=== PATIENT | female | born 1995 | race Caucasian/White ===

== ENCOUNTER 2017-12-27 03:53 | Emergency (ER) | payer MEDICAID, SELFPAY ==
[2017-12-27 04:16] VITALS: BP 112/63; PULSE 72; RESP 12; TEMP 36.9; O2SAT 95; BMI 24.3
--- NOTE | 2017-12-27 05:21 | HMH.EDHA ---
ED Disposition Clinical Impression: Migraine headache Qualifiers: Migraine type: unspecified Status migrainosus presence: without status migrainosus Intractability: not intractable Qualified Code(s): G43.909 - Migraine, unspecified, not intractable, without status migrainosus Disposition: Home, Self-Care Condition on Discharge: Good Instructions: DI for Migraine Additional Instructions: Please follow-up with your family physician as needed. Referrals: Malaika Man [Primary Care Provider] - Time of Disposition: : - Critical Care Critical Care Time: No Attestation: On 12/27/17, the high probability of a clinically significant, sudden or life threatening deterioration of the following system(s) required my full and direct attention, intervention and personal management. The time I documented below is in addition to time spent performing reported procedures but includes the following listed in this critical care notation. Medical Decision Making - Medical Records Medical records reviewed: Yes: I reviewed the patient's medical records. Vital Signs: 12/27/17 04:16 Temperature 98.5 F Temperature Source Oral Pulse Rate [Left Radial] 72 Respiratory Rate 12 Blood Pressure [Right Arm] 112/63 Blood Pressure Mean [Right Arm] 79 Blood Pressure Position [Right Arm] Right Lateral 02 Sat by Pulse Oximetry 95 Oxygen Delivery Method Room Air Orders (Tests/Meds): ED MEDICATIONS Discontinued Medications Generic Name Dose Route Start Last Admin Trade Name Freq PRN Reason Stop Dose Admin Diphenhydramine HCl 50 mg 12/27/17 04:09 12/27/17 04:28 Benadryl 50mg/1ml Vial IM 12/27/17 04:10 50 mg ONCE ONE Administration Ketorolac Tromethamine 60 mg 12/27/17 04:09 12/27/17 04:33 Toradol 60mg/2ml Vial IM 12/27/17 04:10 60 mg ONCE ONE Administration Metoclopramide HCl 10 mg 12/27/17 04:09 12/27/17 04:30 Reglan 10mg/2ml Vial IM 12/27/17 04:10 10 mg ONCE ONE Administration - Morgan Inquiry Pt receiving controlled substance: No - Reevaluation(s) Time: 05:26 Reevaluation #1: Upon reevaluation patient appears medically stable, no acute distress, with no residual headache. This patient to follow-up with PCP for additional evaluation and workup regarding her migraine headaches. She has a 4-month-old child at home, but she is not breast-feeding. Headache HPI - General Chief Complaint: Headache Stated Complaint: migraine Time Seen by Provider: 12/27/17 04:10 Mode of Arrival: Ambulatory Source of Information: Patient Limitations: No Limitations Description of Symptoms (Recalled from ER Triage Doc. by RN): migraine - History of Present Illness MD Complaint: migraine Onset (ago): day(s) (1) Onset description: gradual Location: right, left, frontal, temporal Severity: moderate Severity scale (1-10): 8 Quality: throbbing Relieving factors: nothing Exacerbating factors: movement of head/neck, light, noise, rest Context: occurred at rest Associated symptoms: none Treatments prior to arrival: ibuprofen - Related Data Home Medications Medication Instructions Recorded Confirmed No Known Home Medications [No 12/27/17 12/27/17 Known Home Medications] Allergies Allergy/AdvReac Type Severity Reaction Status Date / Time zolpidem [From AMBIEN] Allergy Unknown HALLUCINATI Verified 12/27/17 04:23 [facility] History I have reviewed the patient's past medical history: Yes Medical History: Denies:: Cancer, Diabetes Mellitus Type 1, Diabetes Mellitus Type 2, MRSA Comment: Hx of migraines Amputation: No Fractures: No - *Social History Smoking Status: Current every day smoker Tobacco Type: cigarettes Alcohol Intake: never - Psychiatric History Expresses thoughts of harming self/others: None Suicide Plan Description: No Plan ROS Obtained: Yes All systems reviewed & no additional complaints - Neurologic Neurologic: Reports as per HPI, Reports headache
[2017-12-27 05:28] VITALS: BP 136/72; PULSE 84; RESP 16; TEMP 37; O2SAT 99
== END 2017-12-27 05:31 | disposition home or self-care (01) ==
PROVIDERS: Emergency Provider Emergency Medicine; Family Provider Family Medicine; PCP Family Medicine
DX: G43.909 Migraine, unspecified, not intractable, without status migrainosus (principal)
CPT/HCPCS: 96372; 99203; 99281; 99291

== ENCOUNTER 2020-04-03 17:59 | Emergency (ER) | payer OTHER, SELFPAY ==
[2020-04-03 18:05] VITALS: BMI 23.6
[2020-04-03 18:11] LABS: Microscopic, Urine URINE MICROSCOPIC (MICROSCOPIC)
[2020-04-03 18:17] VITALS: BP 111/70; PULSE 117; RESP 18; TEMP 37.1; O2SAT 98; BMI 22.1
[2020-04-03 18:17] LABS: Appearance,Urine CLEAR (Clear); Bilirubin,Urine Negative (Negative); Blood, Urine 1+ (Negative); Color,Urine YELLOW (Yellow); Glucose,Urine (UA) Negative (Negative); Ketones,Urine Negative (Negative); Leukocyte Esterase,Urine Negative (Negative); Nitrate,Urine Negative (Negative); PH,Urine 6.5 (5.0-8.5); Protein,Urine Negative (Negative); Urobilinogen,Urine 0.2 EU/dl (0.2)
[2020-04-03 18:18] LABS: Urine Pregnancy, HCG Qual. Negative (Negative)
--- NOTE | 2020-04-03 18:23 | CT_ITS ---
PROCEDURE: CT ABDOMEN PELVIS W CON CLINICAL INDICATION: pain Severe lower abdominal pain COMPARISON: No exams were available for comparison TECHNIQUE: IV Contrast: 75ML OPTIRAY 350 Oral Contrast none Axial images obtained with sagittal and coronal reformats. All CT scans at the facility use one or more dose reduction, viz: automated exposure control, ma/kV adjustment per patient size (including targeted exams where dose is matched to indication, i.e. head), or iterative reconstruction technique. FINDINGS: LOWER THORAX: No acute finding ABDOMEN & PELVIS: The liver, spleen, adrenal glands, pancreas, and kidneys have an unremarkable appearance. The gallbladder is contracted. No renal or ureteral calculi. No intestinal obstruction or free air. No evidence of appendicitis. There is a mild amount of retained colonic feces. There is a small amount of fluid in the right pericolic gutter. Small amount fluid is present in the pelvis and a slightly hyperattenuating. There is a left ovarian cyst measuring approximately 3 cm with crenulated margins and could be due to a ruptured cyst. IMPRESSION: 1. 3 cm left ovarian cyst. The margins are slightly crenulated. The small amount fluid in the cul-de-sac slightly hyperattenuating. These findings raise the question of a ruptured left ovarian cyst. 2. Mild amount of retained colonic feces Dictated by: Sourav Hancock MD 04/04/2020 09:19 Electronically signed by Sourav Hancock MD in [place] 04/04/2020 09:19
[2020-04-03 18:28] LABS: Chloride 106 mmol/L (98-107); Potassium 3.9 mmoL/L (3.5-5.1); Sodium 138 mmol/L (136-145)
[2020-04-03 18:30] LABS: Basophils % 0.4 % (0.1-2.0); Eosinophils # 0.1 K/mm3 (0.0-0.4); Eosinophils % 1.3 % (0.1-12.0); Hematocrit 44.5 % (37.0-47.0); Hemoglobin 14.3 g/dL (12.2-16.2); Lymphocytes # 2.5 K/mm3 (0.7-4.5); Lymphocytes % 22.8 % (10-50); Mean Corpuscular HGB Conc 32.2 g/dL (31.8-35.4); Mean Corpuscular Hemoglobin 31.1 pg (27.0-31.2); Mean Corpuscular Volume 96.6 fl (81-99); Mean Platelet Volume 9.6 fl (7.4-10.4); Monocytes # 0.7 K/mm3 (0.1-1.0); Monocytes % 6.6 % (1.7-9.3); Neutrophils # 7.7 K/mm3 (1.8-7.8); Neutrophils % 68.9 % (37.0-80.0); Platelet Count 228 K/mm3 (142-424); Red Cell Distribution Width 12.7 % (11.5-17.5); White Blood Count 11.1 K/mm3 (4.8-10.8)
[2020-04-03 18:31] LABS: Alanine Aminotransferase 12 U/L (12-78); Albumin/Globulin Ratio 1.9 (1.1-1.8); Alkaline Phosphatase 53 U/L (38-126); Anion Gap 10.9 mEq/L (5-15); Aspartate Amino Transferase 25 U/L (14-36); Bilirubin,Total 0.4 mg/dl (0.2-1.3); Blood Urea Nitrogen 13 mg/dl (7-17); Carbon Dioxide 25 mmol/L (22.0-30.0); Creatinine Clearance Estimated 133 mL/min (50-200); Estimated Glomerular Filt Rate 103 ml/min (>60); GFR (African American) 124 ML/MIN (>60); Globulin 2.7 g/dL (1.3-3.2); Total Protein,Serum 7.7 g/dl (6.3-8.2)
[2020-04-03 18:32] LABS: Calcium 9.5 mg/dl (8.4-10.2); Glucose 115 mg/dl (74-100)
[2020-04-03 18:34] LABS: Bacteria,Urine Trace /lpf; RBC,Urine Occasional #/hpf (0-3); WBC,Urine Occasional #/hpf (0-3)
--- NOTE | 2020-04-03 18:36 | HMH.EDGENADL ---
ED Disposition Clinical Impression: Ruptured ovarian cyst Disposition: Home, Self-Care Condition on Discharge: Good Instructions: DI for Ovarian Cyst Additional Instructions: Follow-up with Dr. Walker in the office, call tomorrow morning to arrange. Return to the emergency room if severe pain, vomiting, fever, fainting recurs. Tylenol 3 if needed for pain. Additional instructions for CONTROLLED SUBSTANCES: You have been prescribed a medication that is a controlled substance. Controlled substances include pain medications known as opiates and sedative nerve medications known as benzodiazepines. Tramadol, fioricet, and gabapentin are also controlled substances. Some common opiates include: Codeine (such as Tylenol #3) Hydrocodone (Vicodin, Lortab, Lorcet, [place]) Oxycodone (Percocet, Percodan, Oxycodone, Oxy IR) Some common benzodiazepines include: Diazepam (Valium) Lorazepam (Ativan) Alprazolam (Xanax) Clonazepam (Klonopin) Oxazepam (Serax) All of these controlled substances are highly addictive and frequently abused. Misuse can and frequently does lead to addiction as well as overdose and . Medication should be stored in a locked cabinet or other secure storage unit. Do not store the medication in a motor vehicle. Short term supplies, 3 days or less, are prescribed because of the highly addictive nature of the medication. Any of the controlled substance medication NOT taken should be disposed of properly and NOT SAVED. The recommended method of disposing of unused medications is: Place the medicines in a sealable plastic bag. If the medicine is a solid, crush it or add water to dissolve it. Add something undesirable (cat litter, coffee grounds, etc.) Dispose of sealed bag in household trash Do not flush or pour unused medicines down a sink or drain. Controlled substances should not be shared, given away or sold. Because of the addictive nature and frequent abuse, these medications are sometimes stolen. These medications should be kept in a safe place where they cannot be stolen. Do not keep them in your car or purse. Lost or stolen prescriptions for controlled substances WILL NOT BE REFILLED in this emergency department, regardless of whether a police report was filed. Referrals: Nnamdi Godinez MD [Primary Care Provider] - - Critical Care Critical Care Time: No Attestation: On 04/03/20, the high probability of a clinically significant, sudden or life threatening deterioration of the following system(s) required my full and direct attention, intervention and personal management. The time I documented below is in addition to time spent performing reported procedures but includes the following listed in this critical care notation. Medical Decision Making - Medical Records Medical records reviewed: Yes: I reviewed the patient's medical records. - Morgan Inquiry Pt receiving controlled substance: Yes Morgan was queried for this patient: No Reason not queried -: Emergent pt cond-no time Risks and benefits of using a controlled substance: were discussed with pt by me Vital Signs: 04/03/20 18:17 Temperature 98.8 F Temperature Source Oral Pulse Rate [Left Radial] 117 H Respiratory Rate 18 Blood Pressure [Right Radial Artery] 111/70 Blood Pressure Mean [Right Radial Artery] 83 Blood Pressure Position [Right Radial Artery] Sitting 02 Sat by Pulse Oximetry 98 Oxygen Delivery Method Room Air - Lab Data Lab Results 04/03/20 18:08: Urine Color Yellow, Urine Appearance Clear, Urine pH 6.5, Ur Specific Soldier 1.020, Urine Protein Negative, Urine Glucose (UA) Negative, Urine Ketones Negative, Urine Blood 1+, Urine Nitrate Negative, Urine Bilirubin Negative, Urine Urobilinogen 0.2, Ur Leukocyte Esterase Negative, Urine RBC Occasional, Urine WBC Occasional, Ur Squamous Epith Cells 3-5, Urine Bacteria Trace 04/03/20 18:08: Urine HCG, Qual Negative 04/03/20 18:15: WBC 11.1 H, RBC 4.60, Hgb 14.
--- NOTE | 2020-04-03 18:48 | PC.NURSE ---
GONE TO CT
[2020-04-03 19:30] VITALS: BP 114/68; PULSE 74; RESP 18; TEMP 37.2; O2SAT 99
--- NOTE | 2020-04-03 19:38 | PC.NURSE ---
ct results received
--- NOTE | 2020-04-03 19:40 | US_ITS ---
PROCEDURE: US TRANSVAGINAL CLINICAL INDICATION: pelvic pain, adnexal mass, r/o torsion COMPARISON: TVP US TRANSVAGINAL PREG from 01/13/2017 CT ABDOMEN PELVIS W CON from 04/03/2020 FINDINGS: The uterus is 7 x 4 x 5 cm with a combined endometrial thickness of 3 mm. No endometrial fluid collection or uterine mass evident. The left ovary is 5 x 3 x 3 cm containing several follicles and a 2 cm cyst. There is blood flow within the left ovary. The right ovary is 3 x 2 cm and contains small follicles with blood flow noted. Free fluid is present in the cul-de-sac with questionable debris or bowel within the cul-de-sac. IMPRESSION: Mildly prominent left ovary with follicles and a 2 cm cyst. Blood flow is present within both ovaries. There is some fluid in the cul-de-sac which may contain some debris or bowel. Dictated by: Sourav Hancock MD 04/04/2020 08:53 Electronically signed by Sourav Hancock MD in [place] 04/04/2020 08:53
--- NOTE | 2020-04-03 19:40 | PC.NURSE ---
called and notified yahir with [facility] re: us order
[2020-04-03 19:50] LABS: HCG Qualitative, Serum Negative (Negative)
[2020-04-03 20:15] VITALS: BP 107/58; PULSE 99; RESP 18; TEMP 36.9; O2SAT 100
[2020-04-03 21:10] VITALS: BP 109/60; PULSE 64; RESP 18; O2SAT 100
[2020-04-03 21:13] VITALS: BP 111/70; PULSE 70; RESP 19; TEMP 36.6; O2SAT 98
== END 2020-04-03 21:16 | disposition home or self-care (01) ==
PROVIDERS: Emergency Provider Emergency Medicine; PCP Family Medicine
DX: N83.202 Unspecified ovarian cyst, left side (principal); F17.210 Nicotine dependence, cigarettes, uncomplicated; K21.9 Gastro-esophageal reflux disease without esophagitis
CPT/HCPCS: 74177; 76830; 80053; 81001; 81025; 84703; 85025; 96365; 99283; 99284; Q9967

== ENCOUNTER → 2020-05-15 10:49 | Outpatient (CLI) | payer OTHER, SELFPAY ==
--- NOTE | 2020-05-15 10:49 | US_ITS ---
PROCEDURE: US TRANSVAGINAL CLINICAL INDICATION: pelvic pain, recent cyst rupture COMPARISON: US TRANSVAGINAL from 04/03/2020 FINDINGS: The uterus is of normal size and echogenicity measuring 8 millimeters x 35 millimeters x 54 millimeters. The right ovary measures 49 millimeters x 36 millimeters x 3 7 millimeters and displays a 31 millimeter right ovarian cyst. The left ovary measures 96 millimeters x 31 mm x 22 millimeters. There is a minimal amount of fluid within the cul-de-sac. IMPRESSION: Right ovarian cyst, small amount of free pelvic fluid Dictated by: Mario Lamar 05/15/2020 12:09 Electronically signed by Mario Lamar in [place] 05/15/2020 12:09
== END ==
PROVIDERS: PCP Family Medicine; Visit Provider Nurse Practitioner Obstetrics & Gynecology
DX: R10.2 Pelvic and perineal pain (principal); N83.209 Unspecified ovarian cyst, unspecified side
CPT/HCPCS: 76830

== ENCOUNTER → 2021-06-16 12:32 | Outpatient (CLI) | payer OTHER, SELFPAY ==
--- NOTE | 2021-06-16 | ECG_ITS ---
APPROVED REPORT Exam: Resting ECG HR:59 bpm ECG Measurements Heart Rate 59 AXES NC 138 P 48 QRSd 94 QRS 95 QT 414 T 67 QTc 409 Conclusion Sinus bradycardia Rightward axis Incomplete right bundle branch block Borderline ECG Electronically signed by : Nnamdi Gentile, 06/17/2021 17:02:35
[2021-06-16 13:26] LABS: Basophils # 0.1 K/mm3 (0-0.2); Basophils % 0.6 % (0.1-2.0); Eosinophils # 0.1 K/mm3 (0.0-0.4); Eosinophils % 1.6 % (0.1-12.0); Hematocrit 41.8 % (37.0-47.0); Hemoglobin 13.6 g/dL (12.2-16.2); Lymphocytes % 25.1 % (10-50); Mean Corpuscular HGB Conc 32.4 g/dL (31.8-35.4); Mean Corpuscular Hemoglobin 31.3 pg (27.0-31.2); Mean Corpuscular Volume 96.5 fl (81-99); Mean Platelet Volume 8.9 fl (7.4-10.4); Monocytes # 0.4 K/mm3 (0.1-1.0); Monocytes % 5.5 % (1.7-9.3); Neutrophils # 5.2 K/mm3 (1.8-7.8); Neutrophils % 67.2 % (37.0-80.0); Platelet Count 194 K/mm3 (142-424); Red Blood Count 4.33 M/mm3 (4.20-5.40); Red Cell Distribution Width 11.7 % (11.5-17.5); White Blood Count 7.8 K/mm3 (4.8-10.8)
[2021-06-16 13:39] LABS: Alanine Aminotransferase 15 U/L (12-78); Albumin Level 4.5 g/dl (3.5-5.0); Albumin/Globulin Ratio 1.9 (1.1-1.8); Alkaline Phosphatase 60 U/L (38-126); Anion Gap 9.6 mEq/L (5-15); Aspartate Amino Transferase 23 U/L (14-36); Bilirubin,Total 0.4 mg/dl (0.2-1.3); Blood Urea Nitrogen 7 mg/dl (7-17); Carbon Dioxide 27 mmol/L (22.0-30.0); Chloride 105 mmol/L (98-107); Chol/HDL Ratio 2.2 (1-3.5); Cholesterol 160 mg/dl (140-200); Estimated Glomerular Filt Rate 122 ml/min (>60); GFR (African American) 147 ML/MIN (>60); Globulin 2.4 g/dL (1.3-3.2); Glucose 79 mg/dl (74-100); HDL Cholesterol 72 mg/dl (40-60); Potassium 4.6 mmoL/L (3.5-5.1); Sodium 137 mmol/L (136-145); Total Protein,Serum 6.9 g/dl (6.3-8.2); Triglycerides 118 mg/dl (30-150); VLDL Cholesterol 24 mg/dL (0-40)
[2021-06-16 13:50] LABS: Direct LDL Cholesterol 70.41 mg/dL (100-129)
[2021-06-16 13:56] LABS: Free Thyroxine Index 2.5 ug/dL (5.93-13.13); Triiodothryronine (T3) Uptake 28 % (23.5-40.5)
[2021-06-16 14:09] LABS: Thyroid Stimulating Hormone 0.83 uIU/mL (0.465-4.68)
[2021-06-16 16:12] LABS: Amphetamine/Metha Screen,Urine Negative ng/ml (<1000)
[2021-06-16 16:14] LABS: Barbiturates Screen,Urine Negative ng/ml (<200)
[2021-06-16 16:15] LABS: Benzodiazepines Screen,Urine Negative ng/ml (<200); Cannabinoid Screen,Urine Negative ng/ml (<50)
[2021-06-16 16:16] LABS: Cocaine Screen,Urine Negative ng/ml (<300); Methadone Screen,Urine Negative ng/ml (<300)
[2021-06-16 16:17] LABS: Opiate Screen,Urine Negative ng/ml (<300)
[2021-06-16 16:18] LABS: Phencyclidine Screen,Urine Negative ng/ml (<25)
== END ==
PROVIDERS: Visit Provider Nurse Practitioner Psychiatric/Mental Health
DX: F42.9 Obsessive-compulsive disorder, unspecified (principal); F90.2 Attention-deficit hyperactivity disorder, combined type
CPT/HCPCS: 36415; 80053; 80061; 80305; 84436; 84443; 84479; 85025; 93005

== ENCOUNTER 2024-12-18 12:13 | Outpatient (CLI) | payer BC, SELFPAY ==
[2024-12-18 16:03] LABS: Phencyclidine Screen,Urine Negative ng/ml (<25)
[2024-12-18 16:12] LABS: Amphetamine/Metha Screen,Urine Negative ng/ml (<1000)
[2024-12-18 16:13] LABS: Barbiturates Screen,Urine Negative ng/ml (<200)
[2024-12-18 16:17] LABS: Cannabinoid Screen,Urine Negative ng/ml (<50)
[2024-12-18 16:18] LABS: Cocaine Screen,Urine Negative ng/ml (<300)
[2024-12-18 16:19] LABS: Methadone Screen,Urine Negative ng/ml (<300)
[2024-12-18 16:20] LABS: Opiate Screen,Urine Negative ng/ml (<300)
[2024-12-18 16:22] LABS: Benzodiazepines Screen,Urine Negative ng/ml (<200)
== END 2024-12-18 23:59 | disposition home or self-care (01) ==
LOC: LAB 12:19
PROVIDERS: PCP Family Medicine; Visit Provider Nurse Practitioner Psychiatric/Mental Health
DX: F90.2 Attention-deficit hyperactivity disorder, combined type (principal)
CPT/HCPCS: 80307